=== PATIENT | female | born 1975 | race Caucasian/White ===

== ENCOUNTER 2022-09-12 10:02 | Emergency (ER) | payer BC, SELFPAY ==
[2022-09-12 10:45] VITALS: BP 140/94; PULSE 64; RESP 18; TEMP 36.9; O2SAT 100
--- NOTE | 2022-09-12 11:01 | ED.URI ---
HPI - URI/Sore Throat General Chief Complaint: Upper Respiratory Infection Stated Complaint: sorethroat,congestion Time Seen by Provider: 09/12/22 11:01 Source: patient Mode of arrival: ambulatory Limitations: no limitations History of Present Illness HPI Narrative: 46-year-old female presents with complaint fever, fatigue, sore throat for 4 days. denies nausea vomiting diarrhea. No other symptoms today. All systems reviewed and negative except as noted above. Related Data Home Medications Medication Instructions Recorded Confirmed naltrexone 8 mg-bupropion 90 mg 1 tablet PO DAILY 09/12/22 09/12/22 tablet,extended release (Contrave) Allergies Allergy/AdvReac Type Severity Reaction Status Date / Time No Known Allergies Allergy Unknown Verified 09/12/22 10:45 Review of Systems Review of Systems: CONSTITUTIONAL: reports fever, chills, or sweats. EYES: Denies visual changes, redness, or discharge. ENT: Denies rhinorrhea, congestion . Reports sore throat CARDIOVASCULAR: Denies chest pain, palpitations, or edema. RESPIRATORY: Denies cough or dyspnea. GASTROINTESTINAL: Denies abdominal pain, nausea, vomiting, or diarrhea. GENITOURINARY: Denies dysuria or hematuria. SKIN: Denies rash or itching. MUSCULOSKELETAL: Denies back pain, joint pain, or myalgia. NEUROLOGIC: Denies headache, numbness, or weakness. PSYCHIATRIC: Denies anxiety or depression. All other systems reviewed are negative, except as documented in HPI. [facility] Past Medical History Medical History (Updated 09/12/22 @ 11:11 by Negar Orlando NP) Knee pain Surgical History Surgical History (Updated 06/23/22 @ 09:06 by Nhi Ochoa CMA) H/O: has had 2 Family History Family History (Updated 05/24/15 @ 08:47 by DOCTOR UNKNOWN) Other Diabetes mellitus Hypertension Social History Social History (Updated 06/23/22 @ 09:04 by Nhi Ochoa CMA) Smoking status: Former smoker Second hand tobacco smoke exposure: No Smoking end date: 04/23/13 Drinks per week: 7 Substance use: current Substance use type: marijuana Additional occupation/education comments: lazer hair removal Gender identity (if verbalized by the patient): Female Sexual Orientation (if Verbalized by the Patient): Straight or Heterosexual Spiritual care concerns: No Agree to blood products: Yes Comments At time of signature, agree with nursing past medical, surgical, social and family history. There is no relevant family history pertinent to the presenting complaint. Exam Narrative: GENERAL: This is a well-nourished, well-developed patient, in no apparent distress. HEAD: normocephalic, atraumatic. EYES: PERRL. Sclera clear/white. Vision is grossly intact. EARS: External ears normal, auditory canals clear and without drainage, TMs normal without perforation. Hearing grossly intact. NOSE: External nose normal with no obvious nasal discharge, nares without redness, no rhinorrhea. THROAT: Mucous membranes moist, posterior pharynx clear. NECK: Neck supple, non-tender without lymphadenopathy, masses or thyromegaly. CARDIOVASCULAR: Regular rate and rhythm without murmurs, gallops, or rubs. RESPIRATORY: Clear to auscultation. Breath sounds equal bilaterally. No wheezes, rales, or rhonchi. SKIN: warm, Dry, intact with no suspicious lesions or rash, good texture and turgor. NEURO: awake, alert, and oriented to person, place and time. There were no obvious focal neurologic abnormalities. EXTREMITIES: No joint tenderness, effusion, or edema noted. Course Course Level of Care: Express Care Visit Vital Signs Vital signs: Vital Signs Temperature 36.9 C 09/12/22 10:45 Pulse Rate 64 09/12/22 10:45 Respiratory Rate 18 09/12/22 10:45 Blood Pressure 140/94 H 09/12/22 10:45 Pulse Oximetry 100 09/12/22 10:45 Oxygen Delivery Room Air 09/12/22 10:45 Temperature 36.9 C 09/12/22 10:45 Pulse Rate 64 01/0
== END 2022-09-12 11:14 | disposition home or self-care (01) ==
PROVIDERS: Emergency Provider Nurse Practitioner Family; PCP Family Medicine
DX: J02.0 Streptococcal pharyngitis (principal); Z87.891 Personal history of nicotine dependence
CPT/HCPCS: 87880; 99213; G0463

== ENCOUNTER 2022-11-10 07:59 | Outpatient (CLI) | payer BC, SELFPAY ==
--- NOTE | ~2022-11-10 | MM_ITS ---
EXAMINATION: MM screening michelle BI w mirza HISTORY: Screening TECHNIQUE: Craniocaudal and mediolateral oblique 3-D tomosynthesis images were obtained and synthetic 2-D images were generated. CAD analysis was submitted and interpreted. COMPARISON: No prior mammogram is available for comparison at this institution. BREAST PARENCHYMAL COMPOSITION: There are scattered areas of fibroglandular density. FINDINGS: There is no evidence of suspicious mass, calcification, or architectural distortion to sugg est malignancy in either breast. There has been no suspicious interval change. IMPRESSION: 1. No mammographic evidence of malignancy. 2. Recommend routine screening mammography in one year. BI-RADS Category 1: Negative Reviewed, dictated and finalized at location B. [employer]
== END 2022-11-10 08:00 | disposition home or self-care (01) ==
LOC: ANHIMG 08:01
PROVIDERS: PCP Family Medicine; Visit Provider Physician Assistant Medical
DX: Z12.31 Encounter for screening mammogram for malignant neoplasm of breast (principal)
CPT/HCPCS: 77063; 77067

== ENCOUNTER 2024-07-25 07:09 | Outpatient (CLI) | payer BC, SELFPAY ==
[2024-07-25 07:53] LABS: Hematocrit 40.6 % (37.0-47.0); Hemoglobin 13.1 g/dL (12.0-15.0); Mean Corpuscular HGB Conc 32.3 g/dl (32-36); Mean Corpuscular Hemoglobin 29.9 pg (26-34); Mean Corpuscular Volume 92.7 fl (80-100); Mean Platelet Volume 10.6 fl (7.4-10.4); Platelet Count Result 148 k/mm3 (150-375); Red Blood Count 4.38 M/mm3 (4.2-5.4); Red Cell Distribution Width 12.4 % (11.5-14.5); White Blood Count 5.1 K/mm3 (4.5-10.0)
[2024-07-25 08:15] LABS: Alanine Aminotransferase 15 U/L (6-35); Albumin Level 4.3 g/dL (3.5-5.1); Alkaline Phosphatase 41 U/L (38-126); Anion Gap 5 mmol/L (4-12); Aspartate Amino Transferase 22 U/L (14-36); Bilirubin,Total 0.9 mg/dL (0.2-1.3); Blood Urea Nitrogen 18 mg/dL (7-17); Carbon Dioxide 27 mmol/L (22-30); Chloride 103 mmol/L (98-107); Cholesterol 209 mg/dL (0-200); Estimated Glomerular Filt Rate > 60; Glucose 99 mg/dL (65-110); HDL Direct 87 mg/dL; Potassium 4.5 mmol/L (3.4-5.0); Sodium 135 mmol/L (137-145); Triglycerides 87 mg/dL (<150)
[2024-07-25 08:25] LABS: LDL Cholesterol Direct 92 mg/dL
[2024-07-25 08:35] LABS: Free T4 Free Thyroxine 0.99 ng/mL (0.78-2.19)
[2024-07-28 10:29] LABS: Thyroid Peroxidase Antibodies 457 IU/mL (<9)
== END 2024-07-25 07:10 | disposition home or self-care (01) ==
PROVIDERS: PCP Family Medicine; Visit Provider Nurse Practitioner Obstetrics & Gynecology
DX: Z00.00 Encounter for general adult medical examination without abnormal findings (principal)
CPT/HCPCS: 36415; 80053; 80061; 83036; 84439; 84443; 85027; 86376

== ENCOUNTER 2025-01-02 13:58 | Outpatient (CLI) | payer BC, SELFPAY ==
--- NOTE | ~2025-01-02 | MM_ITS ---
EXAMINATION: MM screening michelle BI w mirza HISTORY: Screening TECHNIQUE: Craniocaudal and mediolateral oblique 3-D tomosynthesis images were obtained and synthetic 2-D images were generated. CAD analysis was submitted and interpreted. COMPARISON: Comparison to multiple prior studies sequentially, with oldest reviewed study dated 09/26. BREAST PARENCHYMAL COMPOSITION: Not dense: There are scattered areas of fibroglandular density. FINDINGS: There is no evidence of suspicious mass, calcification, or architectural distortion to sugg est malignancy in either breast. There has been no suspicious interval change. IMPRESSION: 1. No mammographic evidence of malignancy. 2. Recommend routine screening mammography in one year. BI-RADS Category 1: Negative Reviewed, dictated and finalized at location A.
--- OUTSIDE RECORDS SUMMARY | 2025-01-02 14:03 | XMS_ITS | Data Portability ---
Author Organization [facility] [place] Address [address] [place] [address] Assessment No assessment recorded. Plan of Treatment Reminders Order Date Submit Date Provider Last Modified By Organization Details Last Modified Time Details Appointments None recorded . Lab None recorded . Referral None recorded . Procedures None recorded . Surgeries None recorded . Imaging None recorded . Medication Orders Wegovy 2.4 mg/0.75 mL subcutan eous pen injector 2022 023 [facility] #[id number], [address], [id number], 3 17:21:42 Wegovy 1.7 mg/0.75 mL subcutan eous pen injector 2022 023 [id number], [address], [phone], 3 11:28:21 Wegovy 1 mg/0.5 mL subcutan eous pen injector 2022 023 [facility] #[id number], [address] [place] [address], [id number], 3 12:36:58 Mounjaro 2.5 mg/0.5 mL subcutan eous pen injector 2021 022 [email or web address] #[id number], [address] [place] [address], [id number], 3 12:15:25 Patient TargetsNo targets recorded. Patient InstructionsNo instructions recorded. Reason for Referral None Reported. Medical Equipment None Reported. Medications Name Sig Start Date Stop Date Status Note LastModified by Organization Details LastModified Time phentermine 15 mg capsule TAKE 1 CAPSULE BY MOUTH EVERY DAY 06/16 completed Not Available Not Available Not Available topiramate 25 mg tablet TAKE 1 TABLET BY MOUTH EVERY DAY 06/16 completed Not Available Not Available Not Available phentermine 30 mg capsule TAKE 1 CAPSULE BY MOUTH EVERY DAY 06/16 completed Not Available Not Available Not Available amoxicillin 500 mg tablet TAKE 1 TABLET BY MOUTH EVERY 12 HOURS FOR 10 DAYS 12/07 completed Not Available Not Available Not Available ergocalcife rol (vitamin D2) 1,250 mcg (50,000 unit) capsule TAKE 1 CAPSULE BY MOUTH EVERY WEEK active Not Available Not Available No t Available Lexapro 5 mg tablet Take 1 tablet every day by oral route for 30 days. 2021 active Not Available Not Available Not Avai lable Saxenda 3 mg/0.5 mL (18 mg/3 mL) subcutaneou s pen injector Dispense 15mL - Inject 0.6mg SC qd x 1wk, then 1.2 SC qd x 7 days, then 1.8mg SC qd x 7 days, then 2.4mg SC x 7 days, 3.0mg SC ongoing daily (maintena nce dose) 12/07 completed Not Available Not Available Not Available Addyi 100 mg tablet TAKE 1 TABLET BY MOUTH EVERY DAY AT BEDTIME active Not Available Not Available No t Available Wegovy 2.4 mg/0.75 mL subcutaneou s pen injector ADMINISTE R 2.4 MG UNDER THE SKIN EVERY WEEK 2023 active Not Available Not Available Not Avai lable Wegovy 1.7 mg/0.75 mL subcutaneou s pen injector INJECT 1.7 MG SUBCUTANE OUS ONCE WEEKLY active Not Available Not Available No t Available Wegovy 1 mg/0.5 mL subcutaneou s pen injector ADMINISTE R 0.5 ML UNDER THE SKIN EVERY WEEK active Not Available Not Available No t Available Wegovy 0.25 mg/0.5 mL subcutaneou s pen injector ADMINISTE R 0.25 MG UNDER THE SKIN EVERY WEEK 12/07 completed Not Available Not Available Not Available Wegovy 0.5 mg/0.5 mL subcutaneou s pen injector INJECT 0.5MG SUBCUTANE OUS EVERY WEEK active Not Available Not Available No t Available Paxlovid 300 mg (150 mg x 2)-100 mg tablets in a dose pack FOLLOW PACKAGE DIRECTION S 12/07 completed Not Available Not Available Not Available Mounjaro 5 mg/0.5 mL subcutaneou s pen injector Inject by subcutane ous route for 28 days. 12/07 completed Not Available Not Available Not Available Mounjaro 2.5 mg/0.5 mL subcutaneou s pen injector Inject by subcutane ous route for 28 days. 12/07 completed Not Available Not Available Not Available Vitals Date Recorded Body height Body mass index (BMI) Body weight Systolic blood pressure Diastolic blood pressure Provider Name and Address Organization Details Last Updated DateTime 03/31/2022 165.1 cm 32.4 kg/m2 51880.79 g 136 mm[Hg] 96 mm[Hg] [facility] 2 11:14:34 Date Recorded Body height Body mass index (BMI) Body weight Systolic blood pressure Diastolic blood pressure Provider Name and Address Organization Details Last Updated DateTime 06/16/2022 165.1 cm 31.4 kg/m2 55940.6 g 129 mm[Hg] 82 mm[Hg] [facility] 09:52:06 Date Recorded Body height Body mass index (BMI) Body weight Systolic blood pressure Diastolic blood pressure Provider Name and Address Organization Details Last Updated DateTime 12/07/2022 165.1 cm 29.6 kg/m2 18305.44 g 118 mm[Hg] 80 mm[Hg] [facility] 12:15:11 Date Recorded Body height Body mass index (BMI) Body weight Systolic blood pressure Diastolic blood pressure Provider Name and Address Organization Details Last Updated DateTime 01/03/2023 165.1 cm 29.6 kg/m2 38637.44 g 135 mm[Hg] 79 mm[Hg] Teresa Cardona [facility] 3 11:16:58 Date Recorded Body height Body mass index (BMI) Body weight Systolic blood pressure Diastolic blood pressure Provider Name and Address Organization Details Last Updated DateTime 02/06/2023 165.1 cm 29.1 kg/m2 03945.66 g 141 mm[Hg] 96 mm[Hg] Kathrine Lorenzo [facility] 3 17:00:53 Social History None recorded. Functional Status None recorded. Mental Status None recorded. Family History Nothing Reported. Medical History No medical history recorded. Gynecological HistoryNo gynecological history recorded. Obstetrics History GPAL:G 0 P 0 0 0 0 Past Encounters Encounter ID Performer Location Encounter Start Date Encounter Closed Date Diagnosis/Indication Diagnosis SNOMED-CT Code Diagnosis ICD10 Code Diagnosis Note [id number] Harsh Cruz MD [place] [address] [address] 11/26/2021 10:22:00 11/28/2021 09:15:16 Obesity 323084347 E66.9 This patient is a 45-year-ol d female with obesity, class 1. I spent more than an hour on her case. We took a detailed history , extensive. There was a concern about binge eating disorder, she is going to consider a sleep study. We intend to obtain a dietitian consult. We are going to obtain laboratory evaluation and we may obtain EKG. She lax any cardiovasc ular concerns. We discussed metabolism , she is going to do about a cup position testing. We discussed energy expenditur e and energy consumptio n. We discussed treatment options in detail. We talked about medication s. We agreed to start medication s. We talked about the risk and side effects of the medication . She will return in 2 weeks for medication follow-up. Gynecologi c examination 34703388 Z01.419 [id number] Harsh Cruz MD [place] [address] [address] 12/10/2021 10:01:34 12/12/2021 15:40:41 Reduced libido 3029167 R68.82 Vitamin D deficiency 347 17441 E55.9 Hyperlipidemia 27996098 E78.5 Obesity 896445551 E66.9 this patient is a 45-year-ol d female presents for follow-up on her medical weight management . We discussed her appetite and her progress thus far. She has reduced energy consumptio n. She has applied meal replacemen ts and dietary changes. She met with the dietitian. She states this was helpful. We talked about decreased sexual thought and decreased desire. Talked about sex hormone testing. we discussed other possible autoimmune disorders. We agreed more detail thyroid testing. We also agreed to supplement vitamin- D. She is profoundly vitamin-D deficient and will require supplement ation ongoing support. We talked about the medication s used for weight management . Talked about medication use for libido. We agreed to stay at the same dose for the phentermin e and topiramate . We agreed to a trial of Austell. she return in 2 weeks for follow-up on medication s. Will consider the results of the testing and the medication changes we made. I spent over 40 minutes on this case including over 35 minutes face-to-fa ce counseling . We prescribed medication s. We discussed side effects of medication s and arrange follow-up. [id number] Harsh Cruz MD [place] [address] [address] 01/03/2022 18:20:13 01/05/2022 14:44:54 Abnormal uterine bleeding 0977810996 9100 N93.9 Obesity 158888613 E66.9 this patient is a 46-year-ol d female presents for follow-up on weight management . She has lost some modest about her weight in this last interval. She was unable to continue the medication this last week. She ran out. She is feeling well. She does not have early any side effects from the medication . She has some fatigue during the day may be due to the topiramate . She is not incorporat ed any activity, intentiona l activity in her routine. She has met with dietitian and have unorganize d plan for calorie consumptio n. Is considerin g resting metabolic rate testing. We agreed to increase medication to 30 mg of phentermin e and we will keep to bear made it 25 mg. We spent over 20 minutes face-to-fa ce. More than 50% was counseling . Will review laboratory evaluation s the patient informally . [id number] Harsh Cruz MD [place] [address] [address] 01/21/2022 09:01:56 01/21/2022 09:57:59 Reduced libido 7328447 R68.82 Obesity 589669234 E66.9 this patient is a 45-year-ol d female presents for follow-up on her medical weight management . We discussed her appetite and her progress thus far. She has reduced energy consumptio n. She has applied meal replacemen ts and dietary changes. She met with the dietitian. She states this was helpful. We talked about decreased sexual thought and decreased desire. she did not olive picker the medication that was prescribed last time for desired. It was represcrib ed in the patient will pick this up after this meeting. Her sex hormone testing is still pending. She had drawn this week. We talked about the medication s used for weight management . She is very satisfied with the effect of phentermin e. We agreed to stay at the same dose for the phentermin e and topiramate . We await laboratory results for sex hormones and hemoglobin A1c. Will consider the results of the testing and the medication changes we made. I spent over 20 minutes on this case including over 50% of the time was face-to-fa ce counseling . We prescribed medication s. We discussed side effects of medication s and arrange follow-up. [id number] Harsh Cruz MD [place] [address] [address] 02/07/2022 14:36:22 02/09/2022 14:32:03 Obesity 275446596 E66.9 this patient is a 46-year-ol d female who presents for follow-up on weight management . She continues to lose weight. She has started to add some resistance training and cardiovasc ular exercise. She states that her appetite is well managed with the medication . She was doing well with her diet. We spent over 20 minutes face-to-fa ce. We agreed to meet in 1 month. She has perform body compositio n and metabolic testing. She has a relatively normal resting energy expenditur e. [id number] ANGELICA Quezada [place] [address],[place] [address] 03/17/2022 09:54:13 03/21/2022 17:18:11 Generalized anxiety disorder 58057539 F41.1 Obesity 145852697 E66.9 this patient is a 46-year-ol d female who presents for follow-up on weight management . She continues to lose weight. She has started to add some resistance training and cardiovasc ular exercise. She states that her appetite is well managed with the medication . She was doing well with her diet. We agreed to continue same dose of medication , phentermin e 30 and topiramate 25 daily. We spent over 20 minutes face-to-fa ce. We agreed to meet in 1 month. She has perform body compositio n and metabolic testing. She has a relatively normal resting energy expenditur eRepeat body compositio n collected. She has lost 9lbs since her last visit, about 1 month ago She is feeling increased anxiety with a situation life event, would like to start lexapro. Has taken it in the past and it worked well for her.No SUIRx sent for lexapro daily, take at bedtimeTo monitor for any worsening symptoms or adverse reactionsR isk and benefits of medication discussed and accepted by patient Time spent in visit is a total of 25mins with at least 50% of visit consisting of counseling and review of plan of care. [id number] ANGELICA Quezada [place] [address] [address] 03/31/2022 11:00:26 04/03/2022 16:54:41 Obesity 256741547 E66.9 this patient is a 46-year-ol d female who presents for follow-up on weight management . She continues to lose weight. She has started to add some resistance training and cardiovasc ular exercise. She states that her appetite is well managed with the medication . She was doing well with her diet. We agreed to continue same dose of medication , phentermin e 30 and topiramate 25 daily. We spent over 20 minutes face-to-fa ce. We agreed to meet in 1 month. She has perform body compositio n and metabolic testing. She has a relatively normal resting energy expenditur e She has not started the lexapro yet, will start tonightShe would like to hold off on increasing the medication for nowBP today 136/96, she should monitor BP at home/at work. Will monitor it and notify us if it continues to be elevated. Time spent in visit is a total of 20 mins with at least 50% of visit consisting of counseling and review of plan of care. [id number] ANGELICA Quezada [place] [address] [address] 06/16/2022 09:43:04 06/16/2022 13:09:29 Obesity 814599257 E66.9 this patient is a 46-year-ol d female who presents for follow-up on weight management . She continues to lose weight.She was on phentermin e and switched to contrave, but stopped when she had covid and has not been on any medication since.She has lost 7lbs since LOVShe continues to eat healthy and incorporat e exercise We discussed all options moving forward in regards to weight loss medication . We discussed contrave vs injectable medication (the new GLP1 agonist).W e discussed R/B of all medication sShe denies any family hx of medullary thyroid cancer or person hx of thyroid cancerShe denies any hx of multiple endocrine neoplasia type 2We reviewed that this is being used off label for weight lossWe reviewed the BBW on this medication , reviewed increase in thyroid C-cell tumor incidence observed in rodents - but human reverence unknown.Parrish yoder agrees to these [facility] ed administra tion. She will do one injection weekly for 4 weeks, RTC in 1 month for f/u Time spent in visit is a total of 25 mins with at least 50% of visit consisting of counseling and review of plan of care. [id number] ANGELICA Quezada [address] [address] 12/07/2022 12:07:38 12/07/2022 14:26:17 Obesity 979309737 E66.9 Doing well, has lost 5lbs since starting wegovy!No negative Thalia agreed to continue wegovy, rx for 1mg SQ per week x 4 weeks sent.Mi nue healthy diet choices, discussed myfitness pal, reviewed exerciseRT C in 4 weeks Time spent in visit is a total of 20 mins with at least 50% of visit consisting of counseling and review of plan of care. [id number] ANGELICA Quezada [place] [address] [address] 01/03/2023 11:05:24 01/03/2023 12:07:58 Obesity 323388375 E66.9 Doing well, has maintained current weight lossNo negative Thalia agreed to continue wegovy, rx for 1.7mg SQ per week x 4 weeks sent.R/B/A /SE discussed. Patient agrees to these riskContin ue healthy diet choices, discussed myfitness pal, reviewed exerciseRT C in 4 weeks Time spent in visit is a total of 20 mins with at least 50% of visit consisting of counseling and review of plan of care. [id number] Harsh Cruz MD [place] [address] [address] 02/06/2023 16:41:38 02/07/2023 15:43:52 Obesity 394249323 E66.9 47-year-ol d female presents for follow-up on weight management . She is putting together a good program. She is managing calories, she is strategic about exercise and food management . She is taking the GLP 1 agonist. She has had some increased hunger. She was previously on mounjaro and Contrave. We spent over 20 minutes face-to-fa ce. More than 50% was counseling . Health Concerns Section Related Observation LastModified by Organization Detai ls LastModified Time None Recorded Concern Status LastModified by Organization Details LastModified Time None Recorded Advance Directives Directive None Recorded Payers Encounter Date Sequence Insurance Name Policy Number Policy Dang Covered Member ID Dang Member ID Guarantor Name 03/31/2022 1 [employer] [employer] 112 Edmond Saldaña Jr [id number] Holley Raya 06/16/2022 1 [employer] [employer] 112 Edmond Saldaña Jr [id number] Holley A Bleier 12/07/2022 1 [employer] [employer] 112 Edmond Saldaña Jr [id number] Holley Trevizo Bleier 01/03/2023 1 [employer] [employer] 112 Edmond Saldaña Jr [id number] Holley Seymourier 02/06/2023 1 [employer] [employer] 112 Edmond Saldaña Jr [id number] Holley Raya Notes Date Note Type Note Provider Name and Address Organization Details Recorded Time 03/31/2022 text/html this patient is a 46-year-old female who presents for follow-up on weight management. She continues to lose weight. She has started to add some resistance training and cardiovascular exercise. She states that her appetite is well managed with the medication. She was doing well with her diet. We agreed to continue same dose of medication, phentermine 30 and topiramate 25 daily. We spent over 20 minutes [id number]-[id number]. We agreed to meet in 1 month. She has perform body composition and metabolic testing. She has a relatively normal resting energy expenditure ANGELICA Quezada [address], [place], [address], [facility] 04/03/2022 14:17:35 06/16/2022 text/html this patient is a 46-year-old female who presents for follow-up on weight management. She continues to lose weight.She was on phentermine and switched to contrave, but stopped when she had covid and has not been on any medication since.She has lost 7lbs since LOVShe continues to eat healthy and incorporate exercise ANGELICA Quezada [address], [place], [address], [facility] 06/16/2022 13:07:02 12/07/2022 text/html 46yopresents for weight management f/udoing well, started wegovy 2 months ago - has lost 5lbs since starting wegovyno negative SEhas made diet changes, incorporating exercise ANGELICA Quezada [address], [place], [address], [facility] 12/07/2022 14:04:55 01/03/2023 text/html 47yopresents for weight management violeta vyas, has maintained her current weight but has not lost this monthdoing well, no negative SEmaking healthy diet choices ANGELICA Quezada [address], [place], [address], [facility] 01/03/2023 12:07:38 02/06/2023 text/html 47-year-old lauren carranza presents for follow-up on weight management. She is putting together a good program. She is managing calories, she is strategic about exercise and food management. She is taking the GLP 1 agonist. She has had some increased hunger. She was previously on mounjaro and Contrave. We spent over 20 minutes sopv-zc-dabb. More than 50% was counseling. Harsh Cruz MD [address], [place], [address], [facility] 02/07/2023 23:37:12 OBGyn Episode No OBEpisode recorded.
--- OUTSIDE RECORDS SUMMARY | 2025-01-02 14:03 | XMS_ITS | Clinical Summary ---
Author Organization [facility] Address [address] [address] Care Team Providers Care Property Controller Name Role Phone Anabell Hanks MD Primary Care Provider Source Comments [facility],non-owned Affiliates and Associated Physician Practices is amultiple site organization consisting of ambulatory clinics and hospital sitesin [place], [place], [place] and [place]. This disclosure is being madepursuant to the Care Everywhere program and may not contain all information available regarding this patient. Last updated 18.[facility] Allergies No known active allergies Medications * Be aware that medications may not be up to date on this document. Alwaysverify current medications with the patient. No known medications Immunizations Immunization Administration Dates Next Due INFLUENZA VACCINE, QUADR. (F LUZONE; FLULAVAL; FLUARIX; AFLURIA QUADRIVALENT; 6MO+), 0.5 ML (IIV4) 08/06/2019 Family History Medical History Relation Name Comments Diabetes - Type 1 Father Hypertension Father Diabetes - Type 1 Mother Diabetes - Type 1 Sister Relation Name Status Comments Father Mother Sister Social History Tobacco Use Types Packs/Day Years Used Date Smoking Tobacco: Former Cigarettes Smokeless Tobacco: Never Comments No Sex and Gender Information Value Date Recorded Sex Assigned at Not on file Legal Sex Female 12:04 PM CDT Gender Identity Not on file Sexual Orientation Not on file Last Filed Vital Signs Vital Sign Reading Time Taken Comments Blood Pressure 138/86 10/13/2019 2:47 PM DROP WIRER Pulse 88 10/13/2019 2:47 PM DROP WIRER Temperature 36.7 C (98.1 F) 10/13/2019 2:47 PM DROP WIRER Respiratory Rate 16 10/13/2019 2:47 PM DROP WIRER Oxygen Saturation 98% 10/13/2019 2:47 PM DROP WIRER Inhaled Oxygen Concentration - - Weight 99.8 kg (220 lb) 10/13/2019 2:47 PM DROP WIRER Height 165.1 cm (5' 5 ) 10/13/2019 2:47 PM DROP WIRER Body Mass Index 36.61 10/13/2019 2:47 PM DROP WIRER Plan of Treatment Health Maintenance Due Date Last Done Comments COLOGUARD (AGES 45-75) - COL ON CA SCREENING 1975 COLON MONITORING 1975 COLONOSCOPY - COLON CA SCREENING 1975 CT COLONOGRAPHY - COLON CA SCREENING 1975 Colorectal Cancer Screening 1975 FIT - COLON CA SCREENING 1975 FLEX SIG - COLON CA SCREENING 1975 LIPID TESTING 1975 MAMMOGRAM 1975 HIV SCREENING 12/19/1990 HEPATITIS C SCREENING 12/15/1993 DTAP/TDAP/TD VACCINES (1 - Tdap) 12/19/1994 HEPATITIS B VACCINE (1 of 3 - 19+ 3-dose series) 12/19/1994 SCREENING FOR DIABETES 05/28/2019 COVID-19 VACCINE (1 - 2023-2 5 season) 2024 DEPRESSION SCREENING 09/10/2024 INFLUENZA VACCINE (Season Ended) 2025 08/06/20 19 ZOSTER VACCINE (1 of 2) 12/19/2025 HIB VACCINE Aged Out No longer eligi ble based on patient's age to complete this topic HPV VACCINE Aged Out No longer eligi ble based on patient's age to complete this topic MENINGOCOCCAL (Group B) VACC INE SHARED DECISION-MAKING Aged Out No longer eligibl e based on patient's age to complete this topic MENINGOCOCCAL GROUPS A/C/Y/W VACCINE Aged Out No longer eligible b ased on patient's age to complete this topic Insurance [employer] Care Teams Property Controller Relationship Specialty Start Date End Date Anabell Hanks MD [address] [place] [address] PCP - General 01/09/18
--- OUTSIDE RECORDS SUMMARY | 2025-01-02 14:03 | XMS_ITS | Continuity of Care Document ---
Author Organization formerly [facility] Address [address] [place] [address] Phone Care Team Providers Care Shactor Name Role Phone Sidney OD OD, [place] Unavailable Unavailabl e Procedures Procedure Date Refraction Office/outpatient Visit, [facility] Advance Directives Directive Yes / No Effective Date File Name No Information Encounters Encounter Description Practice Location Reason(s) For Visit Diagnoses Date Provider Providers Copied on Encounter Office/outpat ient Visit, [facility], [address], [place], [place], [id number], [place] tel:[phone] [address] [facility] No Information [facility]. [address], [place], [id number], [place]. tel:[phone] Family History Family Member Type Diagnosis Age At Onset No Information Payers Payer name Insurance type Covered libertarian ID Authoriza tion(s) No Information Social History Type Description Quantity Date Captured Comments Sex Female Smoking Status No Information Chief Complaint And Reason For Visit No Information Reason For Referral Reason For Referral No Information History Of Present Illness Encounter Date Complaint History Of Prese nt Illness No Information Functional Status Date Functional Assessmen t No Information Instructions Date Instruction Additional Infor mation No Information Assessments Type Assessment Date No Information Patient Care Teams Name Effective Dates (start - stop) Status Members No Information
--- OUTSIDE RECORDS SUMMARY | 2025-01-02 14:03 | XMS_ITS | Data Portability ---
Author Organization [employer] [facility] [facility] in Office Address [address] [place] [address] Assessment Encounter Date Assessment Date Assessment LastModified by Organization Details LastModified Time 06/22/2024 06/22/2024 I spent 45 minutes of tzyc-nf-bqei counselling and care coordination time with the patient. This includes reviewing medical records (medical, surgical, family and social history); updating medication and allergy information in the electronic health record; and ordering labs, medications, and education materials to continue patient care. Not available 06/22/2024 09:47:45 10/05/2024 10/05/2024 I spent 30 minutes of crtg-gp-waoy counselling and care coordination time with the patient. This includes reviewing medical records (medical, surgical, family and social history); updating medication and allergy information in the electronic health record; and ordering labs, medications, and education materials to continue patient care. Not available 10/05/2024 12:41:16 11/23/2024 11/23/2024 I spent 21 minutes of rmju-qr-trui counselling and care coordination time with the patient. This includes reviewing medical records (medical, surgical, family and social history); updating medication and allergy information in the electronic health record; and ordering labs, medications, and education materials to continue patient care. Not available 11/23/2024 12:00:13 Plan of Treatment Reminders Order Date Submit Date Provider Last Modified By Organization Details Last Modified Time Details Appointments [id number] 2024 08:00A M Jolene gill NP Not available Not available Not available Lab noninvasi ve colorecta l cancer DNA + occult blood screening , QL, stool 10/2023 [facility] (Cologuard Orders Only), [address], [address], [place], [address], 07/29/2024 20:44:43 HbA1c (hemoglob in A1c), blood 2023 [email or web address] [facility], [address], [place], [address], 11/20/2024 13:08:37 CMP, serum or plasma 2023 ANCHORAGE [facility], [address], [place], [address], 07/25/2024 12:55:40 lipid panel, serum 2023 ANCHORAGE [facility], [address], [place], [address], 07/25/2024 13:38:05 TSH, ultra-sen sitive, serum 2023 [email or web address] [facility], [address], [place], [address], 11/20/2024 13:08:37 CBC w/ auto diff 2023 [email or web address] [facility], [address], [place], [address], 11/20/2024 13:08:37 Referral None recorded. Procedures None recorded. Surgeries None recorded. Imaging MAMMO, screening , digital, bilateral - If additiona l screening /views are needed, order is approved by ordering provider. 2023 [facility], [address], [place], [address], 12/06/2024 00:07:35 Medication Orders naltrexon e 50 mg tablet 2024 [facility] #[id number], [address] [place] [address], [id number], 11/23/2024 12:06:25 bupropion HCl SR 100 mg tablet,12 hr sustained -release 2024 025 [facility] #[id number], [address] [facility] [address] [place] [address], [id number], 11/23/2024 12:06:25 Wellbutri n XL 150 mg 24 hr tablet, extended release 2023 025 [facility] #[id number], [address] [facility] [address] [place] [address], [id number], 11/23/2024 12:06:22 Wegovy 2.4 mg/0.75 mL subcutane ous pen injector 2023 024 [email or web address] [facility] #[id number], [address] [place] [address], [id number], 10/12/2024 13:26:49 Patient TargetsNo targets recorded. Patient Instructions Encounter Date Encounter Id Patient Instructions Last Modified By Organization Details Last Modified Time 06/22/2024 [id number] mammogram: about this test Not available 06/22/2024 12:06:48 [employer] FAQs Not available 06/22/2024 12:06:48 Weight & Body Changes MIDI Not available 06/22/2024 12:06:48 Any requested follow-up visits are listed below in the Plan of Care section. Go directly to the [employer] sas developer analyst at [email or web address] to book a time. Not available 06/22/2024 08:12:42 It was a pleasur e to meet with you today! We discussed your health concerns related to your weight management, anxiety, and the need for routine health screenings. Your Care Plan Together, we decided that you would: - Start taking Wellbutrin (150 mg extended release) once daily. This medication is different from Lexapro, which you have taken in the past, as it primarily affects your norepinephrine and dopamine. We will monitor this for about 4 weeks and if needed, we can increase the dosage. - Continue with your Wegovy injections at the highest dose for weight management. This medication has been helping you maintain your weight. However, we discussed the possibility of switching to Contrave in the future if needed. - Schedule your mammogram and yearly labs. I will order these for you and you can have them done at your convenience. The labs will include a CBC, CMP, hemoglobin, A1C, lipid panel, and thyroid tests. - Incorporate regular exercise into your routine. You mentioned starting a workout routine with colleagues after work and possibly adding yoga. Regular physical activity can help with weight management and overall health. - Follow up appointment scheduled for July 27 at 8:30 am. We will review your response to the Wellbutrin and discuss any other concerns you may have. Please carefully review the care plan we have decided upon, specific information regarding your medication, and important details about your treatment detailed below. Thank you for trusting us with your care! INFO FOR WEIGHT MANAGEMENT/MEDICAT IONS: - Protein: Eat 100 grams daily (aim for at least 20g with every meal) - Fiber: Eat 25 grams daily (may include 10-12 grams of supplemental fiber) - Carbs: Aim for less than 100 grams daily - Hydration: Drink 100 oz water daily Exercise: -Aim for 150-200 minutes of vigorous exercise/week (at least 30 mins x 5 days a week) -Include strength training to maintain and build muscle Nutritional Consult: Let me know if you would like a referral to a rides attendant to help you with more detailed diet instruction and education. There are two virtual options for rides attendant/dieti nestor services that take insurance: Nourish: https://www.usenou SimpleSite.Covarity HealthLoft: https://K121.com Virtual rides attendant for pre-diabetes/diabe abrahan and prevention: https://www.diabet esdigital.com An amazing resource to use for patients in the state of [place]: [facility] https://www.[facility].org/service s/primary/metaboli w-zvenunmi-jtevpnh -continuous glucose monitoring for 8 weeks followed by team of dry sander/doct osman. -you don't need to be a [facility] member to participate in the program. Akkermansia (probiotic for gut health): Studies: https://www.[facility].n .[facility].gov/pmc/art icles/GNT39973654 and https://www.[facility].gov/pmc/art icles/IQB6403006 Where to buy (this is just one option, does not have to be this brand): https://RSens/products/pe ndulum-akkermansia FIBER: Increased fiber intake can be a successful strategy for weight management and modest weight loss. In addition, fiber has other helpful benefits to digestion, as a prebiotic for overall gut and immune health, moderating blood sugars and improving blood cholesterol levels. Please review the attached resource sheet [facility] Fiber FAQs that provides more details on the daily recommended intake of fiber to achieve health goals. This includes strategies for incorporating fiber as a weight management strategy. Supplementing your diet with fiber through supplements and/or through dietary intake, or incorporating high fiber foods such as lily seeds into your daily regiment has been shown in some studies to lead to modest (5-6 lb) weight loss in just a few weeks. Fiber supplements like Konsyl fiber or Yerba Prima could be good options as they have been demonstrated to have the least contamination from lead (https://www.Graph Story.com/reviews /psyllium-suppleme nts/psyllium/). Not available 06/22/2024 12:12:54 10/05/2024 [id number] Any requested follow-up visits are listed below in the Plan of Care section. Go directly to the [facility] sas developer analyst at [email or web address] to book a time. Not available 10/05/2024 10:49:09 It was a pleasur e to meet with you today! We discussed your health concerns related to your thyroid condition, weight management, and mood fluctuations. Your Care Plan Together, we decided that you would: - Continue with your current treatment plan for your thyroid condition, as your TSH level is currently normal. We will monitor this every 6 months or sooner if you experience any unusual symptoms. - Start taking Wellbutrin (150 mg). This medication is intended to help manage your mood fluctuations. Please start this medication as discussed and reach out if you experience any unexpected side effects. - Continue with your weight loss medication, Wegovy. Please monitor your weight and let me know if there are any significant changes. Also, inform me if the cost of this medication becomes prohibitive due to changes in your insurance coverage. - Monitor your ear piercing for signs of infection. If you notice increased redness, swelling, or discharge, please seek medical attention. Use Bactine spray to clean the area and avoid turning the earrings as this can disrupt the healing process. Please carefully review the care plan we have decided upon, specific information regarding your medication, and important details about your treatment detailed below. Thank you for trusting us with your care! Not available 10/05/2024 12:41:18 11/23/2024 [id number] Any requested follow-up visits are listed below in the Plan of Care section. Go directly to the [employer] sas developer analyst at [email or web address] to book a time. Not available 11/23/2024 11:59:55 It was a pleasur e to meet with you today! We discussed your health concerns related to appetite control and mood stabilization. Your Care Plan Together, we decided that you would: - Increase your Wellbutrin dosage to two tablets in the morning along with naltrexone. If needed, you can take a second dose in the evening. - Consider switching to a 300 mg extended-release formulation of Wellbutrin if you have difficulty taking the second dose consistently. - Follow up in six weeks to assess the effectiveness of the new dosage and make any necessary adjustments. Your follow-up appointment is scheduled for January 04 at 10:00 AM. - Discuss the possibility of adding a liquid oral version of semaglutide once the colvin list is available, to further assist with appetite control. - Monitor your mood and appetite, and report any significant changes or concerns during your follow-up appointment. Please carefully review the care plan we have decided upon, specific information regarding your medication, and important details about your treatment detailed below. Thank you for trusting us with your care! Not available 11/23/2024 12:00:56 Reason for Referral None Reported. Results Created Date Observation Date Name Description Value Unit Range Abnormal Flag Note LastModifiedBy Organization Detail LastModifiedTime Result Notes None recorded. 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 Procedures Surgical History Date Name Laterality Status Provider Name and Address Organization Details Recorded Time 4 Date of Last [place] [address] [place], [place], , [facility] 11/23/2024 12:03:56 4 Date of Last [place] [address] [address] [place], [place], , [facility] 11/23/2024 12:03:42 Imaging Results None recorded. Procedure Notes None recorded. Medical Equipment None Reported. Allergies No known drug allergies Medications Name Sig Start Date Stop Date Status Note LastModified by Organization Details LastModified Time naltrexon e 50 mg tablet Take 0.5 tablets twice a day by oral route as directed . 2024 active Maintena nce dosing Not Available Not Available Not Available bupropion HCl SR 100 mg tablet,12 hr sustained -release Take 2 tablets twice a day by oral route as directed for 30 days. 2024 active Maintena nce dosing Not Available Not Available Not Available Wegovy 2.4 mg/0.75 mL subcutane ous pen injector Inject 2.4 mg every week by subcutan eous route as directed for 30 days. 10/12 completed Not Available Not Available Not Available Vitals Date Recorded Body height Body mass index (BMI) Body weight Provider Name and Address Organization Details Last Updated DateTime 10/05/2024 165.1 cm 29.1 kg/m2 19611.[place] [address] [place], [facility] 10/05/2024 12:43:04 Date Recorded Body height Body mass index (BMI) Body weight Provider Name and Address Organization Details Last Updated DateTime 11/23/2024 165.1 cm 28.8 kg/m2 56940.[place] [address] [place] [place], [facility] 11/23/2024 11:52:00 Date Recorded Body height Body mass index (BMI) Body weight Provider Name and Address Organization Details Last Updated DateTime 06/22/2024 165.1 cm 28.3 kg/m2 88564.7 [place] [address] [place], [place], , [facility] 06/22/2024 12:13:44 Date Recorded Body height Body mass index (BMI) Body weight Provider Name and Address Organization Details Last Updated DateTime 07/01/2024 165.1 cm 30 kg/m2 13793.63 [place] [address] [place], , [facility] 07/01/2024 14:53:06 Social History Question Answer Notes LastModified by Organizat ion Details LastModified Time Tobacco Smoking Status Former Smoker SMOKING Status: Former smoker Packs per day (current):U nknown Packs per day (past): 1 Start year:1993 Quit year: 2012 [place] [address] [place], [place], , [facility] 06/22/2024 08:15:35 What Is Your Level Of Alcohol Consumption? Moderate Reported Drinks: Glasses Of Wine: 8-14, Cans Of Beer Or Cider: 0, Shots Of Liquor: 0 Information not available 06/22/2024 Are You Currently Employed? Yes Information not available 06/22/2024 What Type Of Diet Are You Following? REGULAR Information not available 06/22/2024 What Is The Highest Grade Or Level Of School You Have Completed Or The Highest Degree You Have Received? 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 Information not available 06/22/2024 Sex: Female Functional Status Question Answer Note LastModified by Organization D etails LastModified Time What is your exercise level? None Information not available 06/22/2024 Mental Status None recorded. Family History Nothing Reported Notes:Breast Cancer: PGM Hea rt Disease: Mom DM1/CHF/HTN: Mom Sister: DM1 CHRONIC OBESITY/SMOKER: DAD Medical History Condition Response Allergies (Food, seasonal, environmental ) N Other N Drug/Latex Allergies/Reactions N Breast Cancer N Blood Transfusion N Lung Disease N Dermatologic Disorders N Defects or Inherited Disease N Breast Problem N Gestational Diabetes N Hematologic disorders N Anesthesia Complications N History of STI N Polycystic ovary syndrome N Anxiety Disorder Y Autoimmune disease Y Arthritis N Polyps N Infertility N History of abnormal pap N Acid Reflux (GERD) N Cancer N Varicosities N Stroke N Neurologic/Epilepsy N Endometriosis N High Cholesterol N Headaches N Fibromyalgia N Kidney Disease N Heart Problems N Thyroid Problems N Kidney or Bladder Problems N GI Problems N Acne N Eating Disorder N Anemia N Art (IVF or FET) N Psychiatric Illness N Ovarian Cancer N Diabetes N Pulmonary (TB, Asthma) N Hepatitis/Liver Disease N Eczema N Abuse/Domestic Violence N Trauma/Violence N Depression/ depression N Heart Disease N Pre-Eclampsia N Hypertension N Osteoporosis N Thrombophilias N Gynecological History Statement/Question Response Date of Last Mammogram 01/09/2024 Date of LMP 06/02/24 Menses Monthly Y Date of Last Pap Smear 01/09/2024 Current Control Method None Approximate Hormone Replacement Therapy N Obstetrics History GPAL:G 4 P 2 0 2 2 Type Value Full Term 2 Induced 1 Spontaneous 1 Living 2 Total 4 Past Encounters Encounter ID Performer Location Encounter Start Date Encounter Closed Date Diagnosis/Indication Diagnosis SNOMED-CT Code Diagnosis ICD10 Code Diagnosis Note [id number] Gretchen Cano MD Main Office [address] [place] [id number] 06/22/2024 08:32:20 06/23/2024 09:29:45 Health education given 335054272 Z71.9 - Educated patient on the importance of regular screenings and maintainin g a healthy lifestyle. - Discussed the benefits and potential side effects of Wellbutrin and Wegovy.- Provided guidance on weight management strategies , including diet and exercise.- Advised patient on the importance of monitoring for any changes in mood or weight.- Patient understand s and agrees with the treatment plan. Screening for malignant neoplasm of breast 788924011 Z12.31 - Patient is due for a mammogram. - Ordered mammogram to be performed at [facility].- Advised patient on the importance of regular breast cancer screening. Screening for malignant neoplasm of colon 995309420 Z12.11 - No specific details provided in the transcript . Adult heal th examination 101898901 Z00.00 - Ordered comprehens jim lab work including CBC, CMP, hemoglobin A1C, lipid panel, and thyroid function tests.- Lab orders sent to [facility] in [place]. - Scheduled follow-up appointmen ailyn for July 27 at 8:30 AM to review lab results and overall health status. Major depr essive disorder 189136953 F32.9 - Patient reports feeling in a funk due to ongoing lawsuits, no panic attacks noted.- Discussed medication options: Lexapro (SSRI) vs. Wellbutrin (NDRI).- Patient previously responded well to Wellbutrin as part of Contrave.- Prescribed Wellbutrin XL 150 mg daily, with potential to increase to 300 mg if needed.- Advised patient to monitor mood and report any side effects.- Follow-up in 4 weeks to evaluate response to Wellbutrin .-Counsele d on risks benefits and most common side effects of this therapy with understand ing verbalized . Body mass index 25-29 - overweight 077316661 Z68.28 - Patient's BMI is currently in the overweight range.- Discussed the importance of regular physical activity and a balanced diet to manage weight.- Patient plans to start working out with a group twice a week and add yoga once a week.- Prescribed Wegovy 2.4 mg for weight management , patient has been on this dose for a year and is currently in maintenanc e phase.- Patient reported a 10-pound weight gain after a 3-week break from Wegovy, indicating the medication 's effectiven ess in weight maintenanc e.- Advised patient to continue Wegovy and monitor weight regularly. - Follow-up in 4 weeks to reassess weight and medication efficacy.- Counseled on risks benefits and most common side effects of this therapy with understand ing verbalized .-[place] ed die try out worker referral also another option to add into plan of care. Has used one in the past but open to this suggestion . [id number] Jolene Ashford NP Main Office [address] [place] [address] 10/05/2024 10:02:07 10/06/2024 04:05:16 Major depressive disorder 360922372 F32.9 - Patient has not started Wellbutrin regularly due to concerns about potential adverse reactions, especially given family history of poor reactions to the medication .- Educated patient that the prescribed dose of Wellbutrin is 150 mg, which is lower than the cumulative dose of 400 mg she was previously exposed to with Contrave.- Patient agrees to start Wellbutrin 150 mg daily and will monitor for any adverse reactions. - Discussed the importance of managing depressive symptoms, especially given situationa l stressors and seasonal affective disorder.- Follow-up in 1 month to assess the effectiven ess of Wellbutrin and any side effects. Body mass index 30+ - obesity 801300827 Z68.30 - Patient's weight is currently stable between 170-175 lbs, with a goal to reduce to the 160s.- Patient has been on Wegovy for weight management and has not went down more than 5lbs reinitiati ng Wegovy.- e is continuing to incorporat e high protein and fiber; but knows physical activity needs to become a priority and has goals to work on this.- Educated patient on the potential insurance colvin increase for Wegovy starting in September and discussed the importance of continuing the medication if affordable .- Patient to monitor weight and report any significan t changes.- Follow-up in 4wks to reassess weight and medication affordabil ity. [id number] Jolene Ashford NP Main Office [address] [place] [address] 11/23/2024 11:02:17 11/24/2024 04:05:33 Overweight 745993282 E66.3 - Persistent overweight status; patient currently weighs 173 lbs, aiming to lose an additional 5 lbs in the coming weeks.- Continued combinatio n therapy with naltrexone and bupropion for appetite regulation ; instructed patient that a second daily dose may be added if needed.- Discussed option of compounded semaglutid e (oral formulatio n) for additional weight management support if cost is acceptable once pricing becomes available. - Scheduled follow-up in [facility] 6 weeks (Sunday, January 04) to reassess weight trends and efficacy of current regimen. Major depr essive disorder 215137121 F32.9 - Expressed insufficie nt mood improvemen t on current low-dose bupropion regimen.- Increased bupropion in combinatio n with naltrexone to mimic Contrave dosing; two tablets each morning, with the option of a second daily dose if tolerated. - Will consider switching to extended-r elease 300 mg bupropion if adherence to a nighttime dose proves difficult or if mood remains suboptimal .- Scheduled 6-week follow-up to evaluate mood stability and therapeuti c response.- Negative for SI/HI Health Concerns Section Related Observation LastModified by Organization Detai ls LastModified Time None Recorded Concern Status LastModified by Organization Details LastModified Time None Recorded Advance Directives Directive None Recorded Payers Encounter Date Sequence Insurance Name Policy Number Policy Dang Covered Member ID Dang Member ID Guarantor Name 06/22/2024 1 [place] [address] [id number] Holley Raya 10/05/2024 1 [place] [employer] [place] [place] [address] [id number] Holley Raya 11/23/2024 1 [place] [employer] [place] [address] [id number] Holleyher Raya Notes Date Note Type Note Provider Name and Address Organization Details Recorded Time 06/22/2024 text/html Patient is a 48 year old female presenting for a follow-up visit to discuss her weight management, depression funk , and medication refills. Weight Management:- Patient reports being on Wegovy for over a year, currently at the highest dose of 2.4.- She mentions that she has been maintaining her weight with the medication but has not been losing any additional weight.- She reports gaining 10 pounds during a three-week break from the medication.- Patient expresses concern about the long-term affordability of Wegovy due to insurance coverage.- She mentions a plan to start working out with colleagues after work and to incorporate yoga into her routine; knows that is the only way she is going to lose more weight and be able to maintain her progress. Depression/Anxiety: - Patient has a history of situational anxiety and depression.- She has been previously treated with Lexapro but has not taken it in a long time.- She reports feeling better when she was on Contrave, which contains Wellbutrin.- Patient expresses interest in trying Wellbutrin again to manage her current funk which is more depression than anxiety related.-Has very stressful life issues happening at this time which is adding to this feeling.- Negative for SI/HI Medication Refills:- Patient requests a refill of her Wegovy prescription.- She is also interested in starting Wellbutrin and discontinuing Lexapro for now. Menstrual History:- Patient reports having been four times, with two pregnancies resulting in C-sections, one miscarriage, and one termination.- She underwent a D&C procedure in between her two successful pregnancies. Family History:- Patient's maternal side has a history of type 1 diabetes, with her mother suffering from complications such as congestive heart failure and kidney failure due to poor management of the condition.- Her maternal grandmother had pancreatic cancer.- On her paternal side, her grandmother and an aunt had breast cancer.- Her father has health issues related to his weight and smoking habits. Recent Screenings:- Last menstrual period was on June 02.- Last pap smear and mammogram were over a year ago in January.- She is due for her yearly labs and has a full CBC scheduled in August with her family preservation caseworker.- She requests for the clinician to order her mammogram and other necessary labs. Other:- Patient's daughter, Estelita, is on medication to manage her menstrual cycle.- Her other daughter, Yuko, recently started her menstrual cycle and has expressed interest in taking the same medication as her sister but is not yet 6mos-1yr from starting her first cycle; aware prefer she be at least 6mos out from first cycle before starting BCP due to bone health and development reasons; but a R/B discussion is always warranted based on given circumstances and health status. PMHx:- Anxiety- Autoimmune condition (TTP) PSHx:- section (2 times)- Dilation and curettage- [place] teeth extraction FMHx:- Breast cancer (Paternal grandmother)- Heart disease (Mother)- Diabetes (Mother, Maternal grandmother, Maternal aunt)- Pancreatic cancer (Maternal grandmother) Current Meds:- Wegovy 2.4 mg Allergies:- NKDA Social Hx:- Tobacco Use: Former smoker- Alcohol Use: Not mentioned- Illicit Drug Use: Not mentioned- Education: Not mentioned- Occupation: Not mentioned- Relationship status: Not mentioned- Living conditions: Not mentioned- Physical activity: Plans to start working out 3 days a week- Diet habits: Not mentioned- status: Not mentioned- Sexual practices: Not mentioned Virtual Visit AttestationModality : VideoProvider Location: Home Patient Location: Home Patient State: {{AL AK AZ AR CA CO CT DE DC FL GA HI ID IL* IN [place] HALEY WHITEHEAD MD ME CA MN M S MO MT NE NV NH NJ NM NY NC ND OH OK OR PA RI SC SD TN T X UT [place]}}[{{ * }}]I have obtained consent from the patient for use of autoscribe. Patient has tried the following weight loss strategies: Medications Additional details below for the weight loss strategies the patient tried: Diets: Unknown Prescription Medications: Semaglutide (Wegovy/Ozempic) Supplements: Unknown Weight Loss Programs: Unknown Surgeries: Unknown Is the patient currently trying to get or would like to be in the near future? [place] [address] [place], [phone], [facility] [employer] 06/27/2024 16:59:02 10/05/2024 text/html Patient is a 48 year old female presenting for a follow-up visit to discuss recent lab results, weight management, and thyroid concerns. Recent Lab Results:- Patient reports that her colon tests came back normal, and she has not noticed any GI problems.- She mentions that her CBC and other tests were re-run in August at her specialist's office, and all results were fine.- Patient reports that her kidney and liver functions are good, and her cholesterol levels are normal.- She mentions undergoing plasmapheresis, which she believes has helped with her cholesterol levels.- Patient has been diagnosed with Guru's, but her TSH level is currently normal at 2.3. Weight Management:- Patient's weight fluctuates between 170 to 175 lbs.- She has not seen her weight drop to the 150s since starting Wegovy.- She mentions that there might be a colvin increase for Wegovy, but she plans to continue the medication if it remains affordable.- Patient has not started taking Wellbutrin regularly yet due to concerns about potential reactions, as both her sister and father had adverse reactions to it. Thyroid Concerns:- Patient has been diagnosed with Guru's, but her TSH level is currently normal.- She mentions that her healthcare providers have previously checked her thyroid when she was first diagnosed and have been monitoring it since.- Patient is aware that she may have Guru's, but understands that it does not always affect her TSH level.- She mentions that her thyroid levels could fluctuate, similar to her platelet levels.- Patient plans to have her thyroid levels checked every six months, or earlier if there are any unusual symptoms. Other Concerns:- Patient mentions some personal stressors, including a potential move due to her 's job and the impact it would have on her daughter.- She also mentions a legal issue that is causing her stress.- Patient has not started taking Wellbutrin regularly yet, but plans to do so to help manage her mood swings.- She mentions having seasonal depression and experiencing funks that are more situational.- Patient has concerns about her earrings, one of which has been bleeding. She plans to use Bactine and tea tree oil for care. Virtual Visit AttestationModality : VideoProvider Location: Home Patient Location: Home Patient State: {{AL AK AZ AR CA CO CT DE DC FL GA HI ID IL* IN [place] JACINTO DE LEON MA, MD ME CA MN M S MO MT NE NV NH NJ NM NY NC ND OH OK OR PA RI SC SD TN T X UT [facility]}} Jolene Ashford, [place] [address] [place], [phone], [facility] 10/05/2024 12:46:33 11/23/2024 text/html The patient is a 48-year-old female presenting for follow-up on weight management and mood stabilization. Weight Management- Currently on a regimen of naltrexone and Wellbutrin for weight management.- Admits to missing the evening dose of naltrexone 90% of the time.- Reports that the current regimen manages her appetite but not as effectively as Weerasmovy did.- Current weight: 173 lbs- Goal weight: 164 lbs- Denies history of thyroid issues, diabetes, hypertension, high cholesterol.- Family history includes obesity, type 2 diabetes, and hypertension on the maternal side.- Denies previous use of metformin, Wellbutrin, or other weight loss drugs such as Ozempic, Rybelsus, or Mounjaro.- Interested in exploring medication options for weight reduction, specifically considering Wegovy. Mood Stabilization- Reports no significant improvement in mood with the current low dose of Wellbutrin.- Previously felt more mood-stable on Contrave.- Suspects that the lack of mood improvement is due to the low dose of Wellbutrin rather than missing the evening dose of naltrexone. Past Diagnostic Results:- Pap Smear (November 2023): Normal- Ultrasound (November 2023): Normal- Breast Biopsy (October 2023): Normal- Mammogram (Less than a year ago): Normal- Colonoscopy (3 years ago): Normal- Blood Work (2 months ago):- Vitamin D: Low- HbA1c: 5.1% Virtual Visit Attestation Modality: Video Provider Location: Home Patient Location: Home Patient State: {{AL AK AZ AR CA CO CT DE DC FL GA HI ID IL* IN [place] HALEY WHITEHEAD MD ME CA MN M S MO MT NE NV NH NJ NM NY NC ND OH OK OR PA RI SC SD TN T X UT [facility] [place] W[place]}} [place] [address] [place], [phone], [facility] [employer] 11/23/2024 12:06:46 OBGyn Episode No OBEpisode recorded.
== END 2025-01-02 13:59 | disposition home or self-care (01) ==
LOC: ANHIMG 14:00
PROVIDERS: PCP Family Medicine; Visit Provider Obstetrics & Gynecology
DX: Z12.31 Encounter for screening mammogram for malignant neoplasm of breast (principal)
CPT/HCPCS: 77063; 77067